=== PATIENT | female | born 1995 | race Caucasian/White ===

== ENCOUNTER 2018-04-13 20:35 | Emergency (ER) | payer MEDICAID ==
[~2018-04-13] VITALS: Ht 160 cm; Wt 66.6 kg
[2018-04-13 20:37] VITALS: BP 142/90
[2018-04-13 21:02] LABS: BASOPHILS # (AUTO) 0.09 x10^3/uL (0-0.1); BASOPHILS % (AUTO) 1 % (0-1); EOSINOPHILS # (AUTO) 0.05 x10^3/uL (0-0.4); EOSINOPHILS % (AUTO) 1 % (1-7); LYMPHOCYTES # (AUTO) 2.66 x10^3/uL (1-3.4); LYMPHOCYTES % (AUTO) 29 % (22-44); MD NO; MEAN CORPUSCULAR HEMOGLOBIN 33.3 pg (27.0-34.8); MEAN CORPUSCULAR HGB CONC 35.6 g/dL (32.4-35.8); MEAN CORPUSCULAR VOLUME 93.8 fL (80-100); MEAN PLATELET VOLUME 8.5 fL (7.4-10.4); MONOCYTES # (AUTO) 0.48 x10^3/uL (0.2-0.8); MONOCYTES % (AUTO) 5 % (2-9); NEUTROPHILS # (AUTO) 5.81 x10^3/uL (1.8-6.8); NEUTROPHILS % (AUTO) 64 % (42-75); PLATELET COUNT 223 x10^3/uL (130-400); RED BLOOD COUNT 3.83 x10^6/uL (3.82-5.3)
[2018-04-13 21:11] LABS: MICROSCOPIC NOT IND
[2018-04-13 21:13] LABS: CULTURE INDICATED? NO
== END 2018-04-13 23:15 | disposition home or self-care (01) ==
LOC: ED 21:35
DX: O26.891 Other specified pregnancy related conditions, first trimester (principal); R10.32 Left lower quadrant pain; Z3A.01 Less than 8 weeks gestation of pregnancy
CPT/HCPCS: 36415; 76801; 81003; 84702; 85025; 99285

== ENCOUNTER 2018-07-10 21:46 | Emergency (ER) | payer MEDICAID ==
[~2018-07-10] VITALS: Ht 160 cm; Wt 70.7 kg
--- NOTE | 2018-07-10 22:18 | NUR ---
CALLING L&D NOW; ON HOLD.
--- NOTE | 2018-07-10 22:19 | NUR ---
JESS GOLDEN ON L&D NOW AWARE OF PT. AND OUR ORDERS FOR HEART TONES.
[2018-07-10] MEDS ORDERED: ACETAMINOPHEN 325 MG TABLET ONE (22:20)
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
[2018-07-10] MEDS ORDERED: ACETAMINOPHEN 325 MG TABLET PO ONE (22:30)
[2018-07-10 22:40] LABS: BASOPHILS # (AUTO) 0.03 x10^3/uL (0-0.1); BASOPHILS % (AUTO) 0 % (0-1); EOSINOPHILS # (AUTO) 0.05 x10^3/uL (0-0.4); EOSINOPHILS % (AUTO) 1 % (1-7); LYMPHOCYTES # (AUTO) 1.97 x10^3/uL (1-3.4); LYMPHOCYTES % (AUTO) 21 % (22-44); MD NO; MEAN CORPUSCULAR HEMOGLOBIN 33.7 pg (27.0-34.8); MEAN CORPUSCULAR HGB CONC 35.5 g/dL (32.4-35.8); MEAN CORPUSCULAR VOLUME 95.1 fL (80-100); MEAN PLATELET VOLUME 8.9 fL (7.4-10.4); MONOCYTES # (AUTO) 0.39 x10^3/uL (0.2-0.8); MONOCYTES % (AUTO) 4 % (2-9); NEUTROPHILS # (AUTO) 6.94 x10^3/uL (1.8-6.8); NEUTROPHILS % (AUTO) 74 % (42-75); PLATELET COUNT 193 x10^3/uL (130-400); RED BLOOD COUNT 3.27 x10^6/uL (3.82-5.3); RED CELL DISTRIBUTION WIDTH 12.8 % (9.6-15.2)
--- NOTE | 2018-07-10 22:43 | NUR ---
L&D RN [facility] AT FOR HEART TONES AND STATES BABY SOUNDS GREAT. URINE SAMPLE COLLECTED AND SENT TO LAB. PT. REQUESTING THIS RN TO ASK PA FOR US TO BE ORDERED AND STATES "THAT OTHER LADY SAID YOU GUYS SHOULD PROBABLY DO ONE." JOEL TERAN REQUESTED THIS RN TO CALL BACK UP TO JESS GOLDEN TO FIND OUT IF THIS WAS HER RECOMMENDATION.
--- NOTE | 2018-07-10 22:47 | NUR ---
[facility]Yovani RN FHT IN THE 150'S.
[2018-07-10 22:52] LABS: ALANINE AMINOTRANSFERASE 18 U/L (12-78); ANION GAP 6 mmol/L (5-15); CHLORIDE 110 mmol/L (98-107); CREATININE 0.49 mg/dL (0.55-1.02)
[2018-07-10 22:54] LABS: ALKALINE PHOSPHATASE 64 U/L (45-117); BILIRUBIN,TOTAL 0.2 mg/dL (0.2-1.0); TOTAL PROTEIN 6.6 g/dL (6.4-8.2)
[2018-07-10 22:58] LABS: MICROSCOPIC NOT IND
[2018-07-10 22:59] LABS: CALCIUM 8.1 mg/dL (8.5-10.1)
[2018-07-10 23:07] LABS: CULTURE INDICATED? NO
[2018-07-10] MEDS ORDERED: PREN-3 PO (23:12)
--- NOTE | 2018-07-10 23:24 | NUR ---
Lisa boyer in ED - 07/10/18 at [address] FERNANDEZ AT TO EVAL PT. AND DISCUSS POC.
--- NOTE | 2018-07-10 23:24 | NUR ---
PT. OUT OF ROOM FOR US.
--- NOTE | 2018-07-10 23:49 | NUR ---
PT. BACK TO ROOM FORM US. VS UPDATED. PT. DENIES NEEDS. REPORTS PAIN IS DOWN TO 1/10 NOW.
[2018-07-11 00:19] VITALS: BP 98/55
--- NOTE | 2018-07-11 00:20 | NUR ---
Lisa boyer in [facility] - 07/11/18 at 0021 by RAMU Patient/Caregiver given discharge instructions and they have confirmed that they understand the instructions. Patient ambulatory with steady gait.
--- NOTE | 2018-07-11 00:34 | NUR ---
RECEIVED REPORT BACK FROM BREAK RN, PT. CHART UP FOR RECHECK AT THIS TIME.
== END 2018-07-11 01:12 | disposition home or self-care (01) ==
LOC: ED 07-11 00:46
DX: O26.892 Other specified pregnancy related conditions, second trimester (principal); Z3A.19 19 weeks gestation of pregnancy; R10.2 Pelvic and perineal pain
CPT/HCPCS: 36415; 76815; 80053; 81003; 85025; 99284

== ENCOUNTER 2019-06-15 00:20 | Emergency (ER) | payer MEDICAID ==
[~2019-06-15] VITALS: Ht 160 cm; Wt 67.0 kg
[~2019-06-15 00:20] MED LIST: PREN-3 PO
[2019-06-15 00:21] VITALS: BP 137/74
[2019-06-15 00:43] LABS: BASOPHILS # (AUTO) 0.02 x10^3/uL (0-0.1); BASOPHILS % (AUTO) 0 % (0-1); EOSINOPHILS # (AUTO) 0.03 x10^3/uL (0-0.4); EOSINOPHILS % (AUTO) 0 % (1-7); LYMPHOCYTES # (AUTO) 1.87 x10^3/uL (1-3.4); LYMPHOCYTES % (AUTO) 20 % (22-44); MD NO; MEAN CORPUSCULAR HGB CONC 33.6 g/dL (32.4-35.8); MEAN CORPUSCULAR VOLUME 98.4 fL (80-100); MEAN PLATELET VOLUME 9.2 fL (7.4-10.4); MONOCYTES % (AUTO) 3 % (2-9); NEUTROPHILS # (AUTO) 7.31 x10^3/uL (1.8-6.8); NEUTROPHILS % (AUTO) 77 % (42-75); PLATELET COUNT 177 x10^3/uL (130-400); RED BLOOD COUNT 3.43 x10^6/uL (3.82-5.3); RED CELL DISTRIBUTION WIDTH 12.4 % (9.6-15.2)
[2019-06-15 00:57] LABS: ALANINE AMINOTRANSFERASE 15 U/L (12-78); ALBUMIN 3.2 g/dL (3.4-5.0); ANION GAP 7 mmol/L (5-15); CALCIUM 8.8 mg/dL (8.5-10.1); CHLORIDE 108 mmol/L (98-107); CREATININE 0.56 mg/dL (0.55-1.02)
[2019-06-15 01:00] LABS: ALKALINE PHOSPHATASE 51 U/L (45-117); BILIRUBIN,TOTAL 0.2 mg/dL (0.2-1.0); TOTAL PROTEIN 6.8 g/dL (6.4-8.2)
[2019-06-15] MEDS ORDERED: RHOGAM FROM BLOOD BANK 1 NOTE EA IM/IV ONE (01:00)
[2019-06-15 01:15] LABS: MICROSCOPIC NOT IND
== END 2019-06-15 02:36 | disposition home or self-care (01) ==
LOC: ED 00:46
DX: O20.9 Hemorrhage in early pregnancy, unspecified (principal); Z3A.16 16 weeks gestation of pregnancy
CPT/HCPCS: 36415; 76815; 80053; 81003; 85025; 86850; 86900; 96372; 99284; J2790

== ENCOUNTER 2020-06-11 19:52 | Emergency (ER) | payer MEDICAID ==
[~2020-06-11] VITALS: Ht 160 cm; Wt 70.0 kg
[2020-06-11 20:52] LABS: BASOPHILS % (AUTO) 1 % (0-1); EOSINOPHILS % (AUTO) 1 % (1-7); LYMPHOCYTES % (AUTO) 27 % (22-44); MEAN CORPUSCULAR HEMOGLOBIN 30.9 pg (27.0-34.8); MEAN CORPUSCULAR HGB CONC 35.3 g/dL (32.4-35.8); MEAN PLATELET VOLUME 9.2 fL (7.4-10.4); MONOCYTES % (AUTO) 4 % (2-9); NEUTROPHILS % (AUTO) 67 % (42-75); PLATELET COUNT 198 x10^3/uL (130-400); RED BLOOD COUNT 3.97 x10^6/uL (3.82-5.3)
[2020-06-11 20:53] LABS: MD NO
[2020-06-11 20:59] LABS: MICROSCOPIC NOT IND
[2020-06-11 21:04] LABS: ALANINE AMINOTRANSFERASE 23 U/L (12-78); ANION GAP 6 mmol/L (5-15); CALCIUM 9.2 mg/dL (8.5-10.1); CHLORIDE 110 mmol/L (98-107)
[2020-06-11 21:09] LABS: ALKALINE PHOSPHATASE 63 U/L (45-117); BILIRUBIN,TOTAL 0.2 mg/dL (0.2-1.0); TOTAL PROTEIN 7.7 g/dL (6.4-8.2)
--- NOTE | 2020-06-11 21:09 | NUR ---
PT RESTING IN [facility], LABS DRAWN, PIV PLACED, URINE COLLECTED, ULTRASOUND ORDERED. NO OTHER NEEDS AT THIS TIME
--- NOTE | 2020-06-11 21:45 | NUR ---
ULTRASOUND CALLED, STATES THEY ARE AWARE OF ORDER AND WILL COME SEE HER.
--- NOTE | 2020-06-11 22:15 | NUR ---
previous note in error. note made by this rn. pt to kemal at this time
[2020-06-11 23:00] VITALS: BP 112/69
== END 2020-06-11 23:34 | disposition home or self-care (01) ==
LOC: ED 21:26
DX: O26.891 Other specified pregnancy related conditions, first trimester (principal); N83.201 Unspecified ovarian cyst, right side; R94.31 Abnormal electrocardiogram [ECG] [EKG]; Z3A.01 Less than 8 weeks gestation of pregnancy
CPT/HCPCS: 36415; 76801; 80053; 81003; 83690; 84702; 85025; 93005; 99285